=== PATIENT | female | born 1945 | race Two or more races ===

== ENCOUNTER → 2017-11-16 | Emergency (ER) | payer OTHER ==
[~2017-11-16] VITALS: Ht 160 cm; Wt 58.1 kg
[~2017-11-16] MED LIST: AMOXICILLIN500 MG; GLIPIZIDE10 MG; METFORMIN HCL500 MG; [UNRECOGNIZED DRUG - REMARK]
== END | disposition home or self-care (01) ==
LOC: ER 13:43
DX: R31.9 Hematuria, unspecified (principal); Z79.01 Long term (current) use of anticoagulants

== ENCOUNTER 2019-04-21 03:25 | Emergency (ER) | payer OTHER ==
[~2019-04-21] VITALS: Ht 157.5 cm; Wt 59.9 kg
[2019-04-21] MEDS ORDERED: WARFARIN SODIUM1 MG (03:54)
== END 2019-04-21 18:14 | disposition home or self-care (01) ==
LOC: ER 03:25
DX: K52.89 Other specified noninfective gastroenteritis and colitis (principal); S00.83XA Contusion of other part of head, initial encounter; R53.1 Weakness; R00.0 Tachycardia, unspecified; W18.09XA Striking against other object with subsequent fall, initial encounter; Y93.89 Activity, other specified; Y92.018 Other place in single-family (private) house as the place of occurrence of the external cause; Y99.8 Other external cause status

== ENCOUNTER 2021-06-07 17:14 | Emergency (ER) | payer OTHER ==
[~2021-06-07] VITALS: Ht 160 cm; Wt 59.4 kg
[~2021-06-07 17:14] MED LIST changes: +WARFARIN SODIUM1 MG
== END 2021-06-08 00:27 | disposition home or self-care (01) ==
LOC: ER 17:14
DX: S06.0X9A Concussion with loss of consciousness of unspecified duration, initial encounter (principal); W18.39XA Other fall on same level, initial encounter; Y93.89 Activity, other specified; Y92.098 Other place in other non-institutional residence as the place of occurrence of the external cause; Y99.8 Other external cause status